=== PATIENT | female | born 1945 | race Caucasian/White ===

== ENCOUNTER 2017-02-01 20:38 | Emergency (ER) | payer MEDICARE, OTHER ==
[~2017-02-01 20:38] MED LIST: ATROVENT INH S2.5 ML INH; CATAPRES 0.1MG0.1 MG PO; CLARITIN 10MG T10 MG PO; COREG 3.125M3.125 MG PO; DULERA 200 MCG8.8 GM INH; ELIQUIS5 MG PO; LASIX40 MG PO; LEXAPRO20 MG PO; LISINOPRIL2.5 MG PO; OMNICEF 300 MG300 MG PO; REQUIP1 MG PO; ROPINIROLE HCL0.5 MG PO; TYLENOL 500 MG500 MG PO; VENTOLIN/PROVE0.5 ML INH; VISTARIL25 MG PO; ZANTAC 150 MG150 MG PO; ZESTRIL2.5 MG PO; ZETIA10 MG PO; ZYLOPRIM 100 M100 MG PO
[2017-02-01 21:58] LABS: HEMOGLOBIN 13.8 gm/dl (12.3-15.3); RED BLOOD COUNT 4.42 M/UL (4.00-5.10); WHITE BLOOD COUNT 6.4 K/UL (4.5-11.0)
== END 2017-02-01 23:40 | disposition home or self-care (01) ==
LOC: ER1 20:38
PROVIDERS: Emergency Medicine
DX: K92.1 Melena (principal); K64.4 Residual hemorrhoidal skin tags; Z88.5 Allergy status to narcotic agent; Z88.8 Allergy status to other drugs, medicaments and biological substances
CPT/HCPCS: 36415; 71010; 80053; 82550; 82553; 83605; 83690; 83874; 84484; 85025; 85610; 85730; 86850; 86900; 86901; 93005; 99284

== ENCOUNTER → 2017-02-23 | Outpatient (CLI) | payer MEDICARE, OTHER | LOC: LAB 11:32 | PROVIDERS: Family Medicine | DX: J96.10 Chronic respiratory failure, unspecified whether with hypoxia or hypercapnia (principal); I10 Essential (primary) hypertension | CPT/HCPCS: 36415; 36600; 80053; 80061; 82803; 84550 ==